=== PATIENT | female | born 2000 | race Caucasian/White ===

== ENCOUNTER → 2019-08-03 16:16 | Outpatient (CLI) | payer OTHER, MEDICAID, SELFPAY ==
--- NOTE | 2019-08-03 16:21 | RAD_ITS ---
STUDY: X-RAY - LEFT ANKLE REASON FOR EXAM: Female, 18 years old. Fall. Pain. TECHNIQUE: 3 view(s) of the ankle. COMPARISON: None. FINDINGS: Normal visualized distal tibia and fibula. Normal medial and lateral malleoli. Normal tibiotalar articulation and ankle mortise. Normal visualized talus and calcaneus. The visualized subtalar, talonavicular, calcaneocuboid and tarsal articulations are normal. There is no demonstrated fracture. The soft tissue structures are unremarkable. RAD/Ankle min 3 Views IMPRESSION: Normal x-ray examination of the ankle. Electronically Signed: Gianni Conway MD at 17:31 EST , Service support ,
--- NOTE | 2019-08-03 16:22 | RAD_ITS ---
STUDY: X-RAY - LEFT FOOT CLINICAL: Female, 18 years old. Fall. Pain. TECHNIQUE: 3 view(s) of the foot. COMPARISON: None. FINDINGS: Normal talus, calcaneus, and tarsal bones. Normal visualized subtalar, talonavicular, calcaneocuboid, tarsal and tarsometatarsal articulations. Normal metatarsi. Normal metatarsophalangeal joint of the great toe. Normal tibial and fibular sesamoid bones. Normal interphalangeal joint of the great toe. Normal phalanges of the great toe. Normal second through fifth metatarsophalangeal joints. Normal interphalangeal joints and phalanges of the lesser toes. The soft tissue structures are unremarkable. There is no demonstrated fracture. RAD/Foot min 3 Views IMPRESSION: Normal x-ray examination of the foot. Electronically Signed: Gianni Conway MD at 17:29 EST , Service support ,
== END ==
PROVIDERS: Family Provider Pediatrics; PCP Pediatrics; Referring Provider Physician Assistant; Visit Provider Physician Assistant
DX: S99.922A Unspecified injury of left foot, initial encounter (principal); S99.912A Unspecified injury of left ankle, initial encounter; W19.XXXA Unspecified fall, initial encounter
CPT/HCPCS: 73610; 73630

== ENCOUNTER 2020-11-02 12:12 | Emergency (ER) | payer OTHER, MEDICAID, SELFPAY ==
[2020-11-02 12:12] VITALS: BP 112/74; PULSE 109; RESP 16; TEMP 36.6; O2SAT 98; BMI 21.2
--- NOTE | 2020-11-02 12:35 | ED.DCSUM_ITS ---
History of Present Illness Chief Complaint: Sore Throat Informant: Patient, Family Onset: Today Current Severity: Moderate Maximum Severity: Moderate Narrative: Patient presents secondary to sore throat. She states she woke this morning with a sore throat and felt like her throat was tight and closing. She reports having difficulty swallowing and drinking. Patient is speaking in full sentences and tolerating secretions well the time of my examination. Patient states symptoms are similar to when she has had strep in the past. She reports having some blood work drawn yesterday and not feeling well following this, but otherwise has had no recent illness. Past Medical History - Allergies and Home Meds Allergies/Adverse Reactions: Allergies Penicillins Allergy (Verified 11/02/20 12:13) Unknown Primary Care Physician: Roberta Gordon MD [Primary Care Provider] - Past Medical History: None Review of Systems General: Denies: Chills, Fever Eyes: Denies: Visual changes - bilaterally ENT: Reports: Sore throat. Denies: Bilateral ear pain, Rhinorrhea Cardiovascular: Denies: Chest pain, Palpitations Respiratory: Denies: Dyspnea, Cough Gastrointestinal: Denies: Abdominal pain, Nausea, Vomiting, Diarrhea Genitourinary: Denies: Dysuria Musculoskeletal: Denies: Swelling, Extremity Pain Skin: Denies: Rash Neurological: Denies: Headache Hematologic: Denies: Easy bruising, Easy bleeding Allergy: Denies: Uticaria Physical Exam Vital Signs/Narrative: Vital Signs Temp Pulse Resp BP Pulse Ox 11/02/20 12:12 98 F 109 H 16 112/74 98 Inital Vital Signs reviewed: Yes General: Well nourished, Well developed Head: Normocephalic Eyes: Perrl, EOMI ENT: Moist mucous membranes, - - Posterior pharyngeal drainage and mild tonsillar enlargement. White patch noted to the left tonsil. Uvula is midline. Cardiovascular: Regular rate, Regular rhythm Respiratory: No distress, CTA bilaterally Abdomen: Soft, Nontender Extremities: Nontender Skin: Normal color Neurological: Alert, Oriented x3, Normal Strength, Normal Sensation Psychological: Normal affect Diagnostic/Tx/Re-eval - Medical Decision Making Patient was given a dose of Zithromax as she does have a penicillin allergy. She was also given a dose of steroid. On repeat evaluation patient noted feeling nauseated and was given a dose of Zofran. At this time patient is resting comfortably in bed. Head of bed is elevated approximately 30 degrees. She is tolerating secretions well and has a strong voice. She is complaining of some abdominal cramping after taking medication on an empty stomach. She will be given a dose of Bentyl along with some crackers to eat. She will be discharged with a prescription for Zithromax. ED Disposition - Plan for ED Patient: Disposition: Home or Assisted Living Diagnosis: Pharyngitis Instructions: ED Pharyngitis, Strep (Presumed) Prescriptions: Azithromycin [Zithromax] 250 mg PO DAILY #4 tab Transmission Status: Pending to [facility] Referrals: Roberta Gordon MD [Primary Care Provider] - 3-5 Days if not improving
[2020-11-02] MEDS: Azithromycin 250 MG Tablet 500 MG PO (12:44)
[2020-11-02] MEDS: predniSONE 20 MG Tablet 40 MG PO (12:44)
[2020-11-02] MEDS: Ondansetron ODT 4 MG Tablet PO (13:13)
[2020-11-02 14:05] VITALS: RESP 18
== END 2020-11-02 14:06 | disposition home or self-care (01) ==
PROVIDERS: Emergency Provider Emergency Medicine; PCP Pediatrics
DX: J02.9 Acute pharyngitis, unspecified (principal)
CPT/HCPCS: 99283

== ENCOUNTER 2021-04-03 16:29 | Emergency (ER) | payer OTHER, MEDICAID, SELFPAY ==
[2021-04-03 16:30] VITALS: BP 101/62; PULSE 104; RESP 16; TEMP 38.8; O2SAT 98; BMI 22.8
[2021-04-03 18:04] VITALS: BP 97/57; PULSE 82; RESP 14; O2SAT 99
--- NOTE | 2021-04-03 18:07 | EDS_ITS ---
HPI HPI - URI History of Present Illness Chief Complaint: Sore Throat Narrative Narrative: 20-year-old female with sore throat. She states that the symptoms have been over the last 24 hours. She was seen in urgent care and had a rapid strep done which was negative. This was sent for culture. Patient is currently awaiting COVID-19 vaccine. She has not had history of COVID-19 and has not had her vaccines. She does have a history of strep throat which she states feels similar. She took some anti-inflammatories earlier and this did help however after leaving the urgent care she states she had a fever again and her throat was hurting. She did not take anything else for pain. She denies pain with neck movement. She is not had a fever for today. She denies cough, chest pain, shortness of breath. Patient states he has a history to penicillin. Immu nizations up-to-date. She denies chance of . ROS ROS ED Constitutional Constitutional ED: Reports chills and fever(s); Denies sweats or weight loss Eyes Eyes: Denies blurry vision or diplopia ENT ENT ED: Reports sore throat; Denies rhinorrhea Cardiovascular Cardiovascular: Denies chest pain or palpitations Respiratory/Chest Respiratory/Chest: Denies cough, dyspnea or sputum Gastrointestinal Gastrointestinal: Denies abdominal pain, diarrhea, nausea or vomiting Genitourinary Genitourinary ED: Denies dysuria, hematuria or urinary frequency Musculoskeletal Musculoskeletal: Reports myalgias; Denies arthralgias, back pain or neck pain Integumentary Denies abscess or rash Neurologic Neurologic: Denies headache(s) or paresthesias Psychiatric Psychiatric: Denies anxiety or depression PFSH PFSH Medical History Smoker Allergy/AdvReac Type Severity Reaction Status Date / Time Penicillins Allergy Unknown Verified 04/03/21 16:31 Social History Smoking Status: Current every day smoker tobacco type: e-cigarettes EXAM Physical Exam Const Vital Signs: 04/03/21 16:30 04/03/21 18:04 Temperature 101.8 F H Temperature Source Temporal Pulse Rate 104 H 82 Respiratory Rate 16 14 Blood Pressure 101/62 97/57 L Blood Pressure Mean 75 70 Pulse Ox 98 99 Oxygen Delivery Method Room Air Room Air Positive well nourished General Appearance ED: NAD HEENT normocephalic and atraumatic Throat: posterior oropharynx abnormal Positive for erythema; Negative for exudates and foreign body Neck no meningeal signs and No no JVD Neck Narrative: Left-sided anterior adenopathy Resp normal respiratory effort and clear to auscultation bilaterally Auscultation: Negative for rales, rhonchi or wheezes Cardio Rate: tachycardic Rhythm: regular rhythm Extremity normal to inspection and full ROM General Extremety ED: Negative for cyanosis or tenderness General Extremity: Negative for cyanosis Neuro oriented x3, CN's II-XII intact bilaterally and no sensory deficits noted Sensorium / Orientation: alert Motor Exam: strength 5/5 throughout Psych mental status grossly normal Skin Lesions: no lesions Rashes: no rashes MDM MDM MDM Narrative Medical decision making narrative: Patient presenting with fever of 101.8. She has not taken any ibuprofen since this morning. Patient was seen in urgent care and had a negative rapid strep as well as a Covid 19 test. Patient is supposed to be quarantining at home but states that her throat started becoming sore again. She did not take anything prior to arrival. Patient was given Tylenol and Decadron in the ED. On physical exam she has some mild posterior oropharyngeal erythema without exudates, no significant edema. No stridor on exam. Lungs are clear to auscultation. Cardiac regular rate and rhythm on examination. Patient counseled that likely this is a viral pharyngitis and she should quarantine until she gets her COVID-19 testing returned. Patient will wait strep culture. I do not believe patient needs any more testing here. Patient given Decadron in ED and will alternate Tylenol and ibuprofen. Impression: 1. Viral pharyngitis Discharge Plan Triage Chief Complaint: Sore Throat ED Provider: Clayton Bello Dx/Rx/DC Orders Instructions: ED Pharyngitis, Report Pending Primary Care Provider: Roberta Gordon Referrals: Roberta Gordon MD [Primary Care Provider] - Disposition Disposition: Home, Self Care
[2021-04-03] MEDS: dexAMETHasone 10 MG/ML Vial PO.IVFORM (18:12)
[2021-04-03] MEDS: Acetaminophen 500 MG Tablet 1000 MG PO (18:12)
[2021-04-03 18:16] VITALS: PULSE 106; RESP 18; O2SAT 98
== END 2021-04-03 18:17 | disposition home or self-care (01) ==
LOC: ED 18:15
PROVIDERS: Emergency Provider Student in an Organized Health Care Education/Training Program
DX: J02.8 Acute pharyngitis due to other specified organisms (principal); B97.89 Other viral agents as the cause of diseases classified elsewhere; F17.290 Nicotine dependence, other tobacco product, uncomplicated
CPT/HCPCS: 96374; 99283